=== PATIENT | male | born 1995 | race African-American/Black ===

== ENCOUNTER 2017-12-11 23:53 | Observation (INO) ==
[2017-12-12] MEDS ORDERED: ONDANSETRON 4 MG/2 ML VIAL IV PRN (00:42)
[2017-12-12] MEDS ORDERED: ACETAMINOPHEN 325 MG TABLET PO PRN (00:42)
[2017-12-12] MEDS ORDERED: MORPHINE 4 MG/1 ML VIAL IV PRN (00:42)
[2017-12-12] MEDS ORDERED: PNEUMOCOCCAL VACCINE (23 VALENT) 0.5 ML VIAL IM ONE (04:29)
[2017-12-12 04:53] LABS: Basophils % 0.4 % (0.0-0.8); Eosinophils # 0.1 10*3/uL (0.0-0.87); Eosinophils % 0.8 % (0.00-10.9); Hematocrit 40.9 VOL% (42.0-52.0); Immature Granulocytes % 0.1 %; Immature Granulocytes Absolute 0.01 #; Lymphocytes # 1.9 10*3/uL (1.4-4.0); Lymphocytes % 23.5 % (21.2-54.2); Mean Corpuscular HGB Conc 31.8 GM/DL (32-36); Mean Corpuscular Hemoglobin 27 PG (27-34); Mean Corpuscular Volume 85.9 FL (87-102); Mean Platelet Volume 10.7 FL (9.6-12.0); Monocytes # 0.6 10*3/uL (0.11-0.8); Monocytes % 7.2 % (1.7-12.7); Neutrophils # 5.4 10*3/uL (1.4-7.4); Platelet Count 185 T/CUMM (130-400); Red Blood Count 4.76 MC/CUMM (3.8-5.5); Red Cell Distribution Width 12.3 % (9.3-17.3); White Blood Count 7.9 T/CUMM (4-12)
[2017-12-12 05:23] LABS: Calcium 8.7 MG/DL (8.5-10.1); Osmolality,Calculated 282.1 MOS/KG (273-304); Potassium 3.3 MMOL/L (3.5-5.1)
[2017-12-12] MEDS: PANTOPRAZOLE 40 MG TABLET PO SCH (08:45)
[2017-12-13] MEDS: PANTOPRAZOLE 40 MG TABLET PO SCH (08:35)
[2017-12-13 11:09] VITALS: BP 128/69
== END 2017-12-13 15:45 | disposition home or self-care (01) ==
LOC: EDBD → EDUNIT# → N.EDINP 23:53 → N.ED 23:53 → N.3E 12-12 01:43
PROVIDERS: ADMIT Surgery; ATTEND Surgery